=== PATIENT | female | born 1980 ===

== ENCOUNTER 2018-09-24 12:42 | Emergency (ER) | payer OTHER, SELFPAY ==
[2018-09-24 12:48] VITALS: BP 141/92; PULSE 99; RESP 18; TEMP 36.8; O2SAT 100
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
[2018-09-24] MEDS: KETOROLAC 60 MG/2 ML VIAL IM (15:37)
[2018-09-24 16:00] VITALS: BP 140/92; PULSE 72; RESP 20; O2SAT 100
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
== END 2018-09-24 16:01 | disposition home or self-care (01) ==
PROVIDERS: Emergency Provider Emergency Medicine
DX: S46.911A Strain of unspecified muscle, fascia and tendon at shoulder and upper arm level, right arm, initial encounter (principal); S70.01XA Contusion of right hip, initial encounter; V58.5XXA Driver of pick-up truck or van injured in noncollision transport accident in traffic accident, initial encounter
CPT/HCPCS: 71045; 72170; 96372; 99282; 99283; J1885